=== PATIENT | male | born 1995 | race African-American/Black ===

== ENCOUNTER 2021-06-15 09:52 | Emergency (ER) | payer BC ==
[~2021-06-15] VITALS: Ht 193 cm; Wt 95.3 kg
[~2021-06-15 09:52] MED LIST: BACTRIM DS TAB1 EACH PO
[2021-06-15 10:43] LABS: EOSINOPHILS 1.3 % (0.0-3.0); MCH 30.7 pg (26.0-34.0); MCHC 33.2 g/dL (28.0-37.0); RDW 12.2 % (10.5-14.5); WBC 7.5 thou/uL (4.0-11.0)
[2021-06-15 10:45] LABS: ABSOLUTE NEUTROPHILS 6.7 thou/uL (1.4-8.2); BASOPHILS 0.2 % (0.0-2.0); HEMATOCRIT 47.5 % (42.0-52.0); HEMOGLOBIN 15.7 gm/dL (14.0-18.0); LYMPHOCYTES 3.3 % (24.0-44.0); MCV 92.5 fL (80.0-100.0); MONOCYTES 4.7 % (1.0-8.0); PLATELET COUNT 245 thou/uL (150-400); POLYS 90.5 % (36.0-66.0); RBC 5.14 mil/uL (4.50-6.00)
[2021-06-15 10:50] LABS: CALCIUM 9.4 mg/dL (8.5-10.1); CREATININE 1.5 mg/dL (0.7-1.3); POTASSIUM 4.3 mmol/L (3.5-5.1)
[2021-06-15 10:56] LABS: ALBUMIN 4.6 g/dL (3.4-5.0); TOTAL BILIRUBIN 2.9 mg/dL (0.2-1.0); TOTAL PROTEIN 8.3 g/dL (6.4-8.2)
[2021-06-15 11:53] LABS: URINE BILIRUBIN NEGATIVE (Negative); URINE BLOOD NEGATIVE (Negative); URINE CLARITY CLEAR; URINE COLOR YELLOW; URINE GLUCOSE-RANDOM* NEGATIVE (Negative); URINE KETONES NEGATIVE (Negative); URINE LEUKOCYTES-REFLEX NEGATIVE (Negative); URINE NITRITE-REFLEX NEGATIVE (Negative); URINE PROTEIN (DIPSTICK) NEGATIVE (Negative); URINE SPECIFIC GRAVITY <= 1.005 (1.005-1.035); URINE UROBILINOGEN 0.2 E.U./dl (0.2-1.0)
[2021-06-15] MEDS ORDERED: ZOFRAN ODT4 MG PO (12:14)
[2021-06-15 12:21] VITALS: BP 122/80
== END 2021-06-15 12:22 | disposition home or self-care (01) ==
LOC: ER 09:52
PROVIDERS: Emergency Medicine
DX: R11.2 Nausea with vomiting, unspecified (principal); Z20.822 Contact with and (suspected) exposure to COVID-19; R10.813 Right lower quadrant abdominal tenderness